=== PATIENT | male | born 1970 | race Caucasian/White ===

== ENCOUNTER 2021-03-13 12:04 | Emergency (ER) | payer OTHER ==
[2021-03-13] MEDS ORDERED: Sodium Chloride 0.9% 10 ML Syringe FLUSH PRN (12:41)
[2021-03-13] MEDS ORDERED: Sodium Chloride 0.9% 2.5 ML Syringe FLUSH PRN (12:41)
[2021-03-13] MEDS ORDERED: cefTRIAXone 1 GM in Premix Bag 1 BAG IV ONE (12:42)
--- NOTE | 2021-03-13 12:52 | EDM.PDOC ---
ED HPI GENERAL MEDICAL PROBLEM - General Chief Complaint: Skin Complaint Stated Complaint: CYST IN GROIN AREA Time Seen by Provider: 03/13/21 12:12 Source of Information: Reports: Patient History Limitations: Reports: No Limitations - History of Present Illness INITIAL COMMENTS - FREE TEXT/NARRATIVE: HISTORY AND PHYSICAL: History of present illness: Patient is a 50-year-old male who presents to the emergency department with concern of an infection noted to his left groin / inner thigh area x 1 week. Patient reports that he noticed a week ago and that he squeezed the abscess which expressed some fluid out of it and thought he had taken care of the infection. He states that it has since, the abscess has returned. Patient reports that he has no testicular pain/scrotal pain with this. Denies any other associated symptoms or concerns. Patient denies fever, chills, chest pain, shortness of breath, or cough. Denies headache, neck stiff ness, change in vision, syncope, or near syncope. Denies nausea, vomiting, abdominal pain, diarrhea, constipation, or dysuria. Has not noted any blood in urine or stool. Patient has been eating and drinking appropriately. Review of systems: As per history of present illness and below otherwise all systems reviewed and negative. Past medical history: As per history of present illness and as reviewed below otherwise noncontrib utory. Surgical history: As per history of present illness and as reviewed below otherwise noncontributory. Social history: See social history for further information Family history: As per history of present illness and as reviewed below otherwise noncontributory. Physical exam: General: Patient is alert, oriented, and in no acute distress. Patient sitting comfortably on exam table. Patient's vitals are stable and reviewed by me. HEENT: Atraumatic, normocephalic, pupils equal and reactive bilaterally, negative for conjunctival pallor or scleral icterus, mucous membranes moist, TMs normal bilaterally, throat clear, neck supple, nontender, trachea midline. No drooling or trismus noted. No meningeal signs. No hot potato voice noted. Lungs: Clear to auscultation, breath sounds equal bilaterally, chest nontender. Heart: S1S2, regular rate and rhythm without overt murmur Abdomen: Soft, nondistended, nontender. Negative for masses or hepatosplenomegaly. Negative for costovertebral tenderness. Pelvis: Stable nontender. Genitourinary: Jewelry Consultant at bedside MARCE Collazo. There is a 2 x 2 cm fluctuant abscess with overlying and surrounding erythema in the left medial / inner thigh just proximal to the scrotum. Tender to palpation over the mass and surrounding tissues. The area of cellulitis does not appear to tract into the scrotum / testicles but is also difficult to fully assess due to location. However, No testicular pain/scrotal tenderness, no penile erythema, drainage, or discomfort. Rectal: Deferred. Skin: Otherwise, intact, warm, dry. Extremities: Atraumatic, negative for cords or calf pain. Neurovascular unremarkable. Neuro: Awake, alert, oriented. Cranial nerves II through XII unremarkable. Cerebellum unremarkable. Motor and sensory unremarkable throughout. Exam nonfocal. Notes: Patient is a 50-year-old male presents emergency department secondary to abscess in his left groin/inner thigh. Upon arrival to the ED, patient is vitally stable but is noted to have an abscess of the left inner thigh with surrounding area of cellulitis. The extension of the cellulitis is difficulty due to the area of location, and is near the scrotum but is unclear if it involves this. Will obtain lab work and abdominal pelvic CT scan to determine the extent of the abscess and cellulitis. Mild derangements of lab work today unremarkable. Noted to have a within normal limits white blood cell count. Abdominal pelvic CT shows a small left inguinal region superficial fluid collection measuring approximately 1.3 cm. Adjacent infiltration of the subcutaneous tissue, likely reflecting cellulitis. Left inguinal region adenopathy may be reactive from adjacent soft tissue infectious process. All incidental findings today of imaging today discussed with patient and importance of follow-up with a primary care provider. Upon reevaluation of patient, he remains vitally stable and comfortable throughout stay in ED. See procedure note below for abscess incision and drainage. Strict return precautions thoroughly discussed with patient and discussed closely monitoring infection for improvement versus worsening symptoms. Signs and symptoms that were prompt return to the ED thoroughly discussed with patient. Discussed importance for follow-up with a primary care provider. Voices understanding and is agreeable to plan of care. Denies any further que stions or concerns at this time. Diagnostics: CBC, CMP, abdominal pelvic CT scan with contrast, wound culture Therapeutics: Rocephin, incision and drainage of abscess, lidocaine Prescription: Bactrim, Keflex Impression: Left inner thigh abscess Cellulitis, left inner thigh Plan: 1. Take medication as prescribed. You can alternate ibuprofen and Tylenol as directed for pain and discomfort. 2. Continue to monitor for signs of improving versus worsening infection as discussed. Follow-up with your primary care provider as discussed. Return to the ED as needed and as discussed. Definitive disposition and diagnosis as appropriate pending reevaluation and review of above. groin Pain Score (Numeric/FACES): 8 - Related Data Allergies Allergy/AdvReac Type Severity Reaction Status Date / Time No Known Allergies Allergy Verified 03/13/21 12:22 Home Meds: Home Meds Cyclobenzaprine [Flexeril] 10 mg PO DAILY 03/13/21 [History] Ibuprofen 800 mg PO ASDIRECTED 03/13/21 [History] Sulfamethoxazole/Trimethoprim [Bactrim Ds Tablet] 1 each PO BID 10 Days #20 tablet 03/13/21 [Rx] cephALEXin [Keflex] 500 mg PO Q8H 10 Days #30 cap 03/13/21 [Rx] Past Medical History - Infectious Disease History Infectious Disease History: Reports: Chicken Pox - Past Surgical History Other Musculoskeletal Surgeries/Procedures:: spinal fusion Social & Family History - Family History Family Medical History: Unobtainable ED ROS GENERAL - Review of Systems Review Of Systems: Comprehensive ROS is negative, except as noted in HPI. ED EXAM, SKIN/RASH Exam: See Below (see dictation) ED SKIN PROCEDURES - I&D Site: left inner medial thigh Skin Prep: Chlorhexidine (Hibiciens), Providone-Iodine (Betadine) Local Anesthesia: Lidocaine: 1% Plain Local Anesthetic Volume: Other (7cc) Area Incised With: 11 Blade Drainage: Purulent, Bloody, Moderate Amount Probed to Break Up Loculations: Yes Packed With: 1/4 in. Iodoform Sterile Dressing: Adhesive Dressing Complications: No Progress/Comments: The procedure, benefits, and risks including bleeding, worsening infection, or injury of surrounding tissues, anesthesia, or allergic reaction and alternatives explained to the patient who voiced understanding of the information. His questions were sought and answered. Patient agreed to procedure with the incision and drainage of abscess of the left inner thigh. Indication, abscess to the left inner thigh. Provider: I&D performed by PA student Smith Keys observed and supervised directly by me. Course - Vital Signs Last Recorded V/S: Last Vital Signs Temp 97.0 F 03/13/21 12:24 Pulse 89 03/13/21 14:40 Resp 16 03/13/21 14:40 BP 155/82 H 03/13/21 12:24 Pulse Ox 96 03/13/21 14:40 - Orders/Labs/Meds Orders: Active Orders 24 hr Category Date Time Status CULTURE WOUND [RM] Stat Lab 03/13/21 15:55 Received Saline Lock Insert [OM.PC] Stat Oth 03/13/21 12:41 Ordered Labs: Laboratory Tests 03/13/21 03/13/21 Range/Units 13:01 13:01 WBC 8.24 (4.0-11.0) K/uL RBC 4.29 L (4.50-5.90) M/uL Hgb 14.7 (13.0-17.0) g/dL Hct 40.8 (38.0-50.0) % MCV 95.1 (80.0-98.0) fL MCH 34.3 H (27.0-32.0) pg MCHC 36.0 (31.0-37.0) g/dL RDW Std Deviation 45.0 (28.0-62.0) fl RDW Coeff of David 13 (11.0-15.0) % Plt Count 151 (150-400) K/uL MPV 10.10 (7.40-12.00) fL Neut % (Auto) 64.0 (48.0-80.0) % Lymph % (Auto) 19.2 (16.0-40.0) % Taney % (Auto) 14.2 (0.0-15.0) % Eos % (Auto) 2.4 (0.0-7.0) % Baso % (Auto) 0.2 (0.0-1.5) % Neut # (Auto) 5.3 (1.4-5.7) K/uL Lymph # (Auto) 1.6 (0.6-2.4) K/uL Taney # (Auto) 1.2 H (0.0-0.8) K/uL Eos # (Auto) 0.2 (0.0-0.7) K/uL Baso # (Auto) 0.0 (0.0-0.1) K/uL Nucleated RBC % 0.0 /100WBC Nucleated RBCs # 0 K/uL Sodium 138 (136-148) mmol/L Potassium 4.6 (3.5-5.1) mmol/L Chloride 102 (98-107) mmol/L Carbon Dioxide 25.6 (21.0-32.0) mmol/L BUN 9 (7.0-18.0) mg/dL Creatinine 0.7 L (0.8-1.3) mg/dL Est Cr Clr Drug Dosing 122.14 mL/min Estimated GFR (MDRD) > 60.0 ml/min Glucose 96 (74-106) mg/dL Calcium 9.0 (8.5-10.1) mg/dL Total Bilirubin 0.4 (0.2-1.0) mg/dL AST 31 (15-37) IU/L ALT 42 (14-63) IU/L Alkaline Phosphatase 78 (46-116) U/L Total Protein 8.0 (6.4-8.2) g/dL Albumin 3.7 (3.4-5.0) g/dL Globulin 4.3 H (2.6-4.0) g/dL Albumin/Globulin Ratio 0.9 (0.9-1.6) Meds: Medications Discontinued Medications Generic Name Dose Route Start Last Admin Trade Name Aracelis PRN Reason Stop Dose Admin Ceftriaxone Sodium/Dextrose 1 50 mls @ 100 mls/hr 03/13/21 12:42 03/13/21 12:59 gm/ Premix IV 03/13/21 13:11 100 mls/hr ONETIME ONE Administration Iopamidol 100 ml 03/13/21 13:56 03/13/21 13:56 Iopamidol 755 Mg/Ml 500 Ml Multipack Bottle IVPUSH 03/13/21 13:57 100 ml ONETIME ONE Administration Lidocaine HCl 10 ml 03/13/21 15:27 03/13/21 15:27 Lidocaine 1% 5 Ml Sdv INJECT 03/13/21 15:28 10 ml ONETIME ONE Administration Lidocaine HCl Confirm 03/13/21 15:25 03/13/21 15:47 Lidocaine 1% 5 Ml Sdv Administered 03/13/21 15:26 Not Given Dose 10 ml .ROUTE .STK-MED ONE Lidocaine/Epinephrine 10 ml 03/13/21 14:39 03/13/21 15:27 Lidocaine 1% With Epinephrine 1:100,000 10 Ml Mdv INJECT 03/13/21 14:40 Not Given ONETIME ONE Sodium Chloride 10 ml 03/13/21 12:41 03/13/21 13:00 Sodium Chloride 0.9% 10 Ml Syringe FLUSH 10 ml ASDIRECTED PRN Administration Keep Vein Open Sodium Chloride 2.5 ml 03/13/21 12:41 03/13/21 13:00 Sodium Chloride 0.9% 2.5 Ml Syringe FLUSH 2.5 ml ASDIRECTED PRN Administration Keep Vein Open Departure - Departure Time of Disposition: 15:56 Disposition: Home, Self-Care 01 Clinical Impression: Cellulitis Qualifiers: Site of cellulitis: extremity Site of cellulitis of extremity: lower extremity Laterality: left Qualified Code(s): L03.116 - Cellulitis of left lower limb Subcutaneous abscess Qualifiers: Site of cutaneous abscess: extremity Site of cutaneous abscess of extremity: lower extremity Laterality: left Qualified Code(s): L02.416 - Cutaneous abscess of left lower limb - Discharge Information Prescriptions: Sulfamethoxazole/Trimethoprim [Bactrim Ds Tablet] 1 each PO BID 10 Days #20 tablet cephALEXin [Keflex] 500 mg PO Q8H 10 Days #30 cap Instructions: Skin Abscess, [id number], Cellulitis, Adult, [id number] Referrals: Olga Massey PA [Primary Care Provider] - Forms: ED Department Discharge Additional Instructions: The following information is given to patients seen in the emergency department who are being discharged to home. This information is to outline your options for follow-up care. We provide all patients seen in our emergency department with a follow-up referral. The need for follow-up, as well as the timing and circumstances, are variable depending upon the specifics of your emergency department visit. If you don't have a primary care physician on staff, we will provide you with a referral. We always advise you to contact your personal physician following an emergency department visit to inform them of the circumstance of the visit and for follow-up with them and/or the need for any referrals to a consulting specialist. The emergency department will also refer you to a specialist when appropriate. This referral assures that you have the opportunity for follow-up care with a specialist. All of these measure are taken in an effort to provide you with optimal care, which includes your follow-up. Under all circumstances we always encourage you to contact your private physician who remains a resource for coordinating your care. When calling for follow-up care, please make the office aware that this follow-up is from your recent emergency room visit. If for any reason you are refused follow-up, please contact the [facility] Emergency Department at and asked to speak to the emergency department charge nurse. [facility] [address] [place] [id number] [facility] [address] [place] [id number] 1. Take medication as prescribed. You can alternate ibuprofen and Tylenol as directed for pain and discomfort. 2. Continue to monitor for signs of improving versus worsening infection as discussed. Follow-up with your primary care provider as discussed. Return to the ED as needed and as discussed. Sepsis Event Note (ED) - Evaluation Sepsis Screening Result: No Definite Risk - Focused Exam Vital Signs: Vital Signs Temp Pulse Resp BP Pulse Ox 03/13/21 14:40 89 16 96 03/13/21 14:00 83 16 97 03/13/21 13:20 87 16 96 03/13/21 12:24 97.0 F 98 18 155/82 H 97 - My Orders Last 24 Hours: My Active Orders 03/13/21 12:41 Saline Lock Insert [OM.PC] Stat 03/13/21 15:55 CULTURE WOUND [RM] Stat - Assessment/Plan Last 24 Hours: My Active Orders 03/13/21 12:41 Saline Lock Insert [OM.PC] Stat 03/13/21 15:55 CULTURE WOUND [RM] Stat
[2021-03-13 13:31] LABS: BLOOD UREA NITROGEN,BUN 9 mg/dL (7.0-18.0); CARBON DIOXIDE,CO2 25.6 mmol/L (21.0-32.0); CHLORIDE,CL 102 mmol/L (98-107); GLUCOSE RANDOM 96 mg/dL (74-106); POTASSIUM,K 4.6 mmol/L (3.5-5.1); SODIUM,NA 138 mmol/L (136-148)
[2021-03-13] MEDS ORDERED: Iopamidol 755 MG/ML 500 ML Multipack Bottle IVPUSH ONE (13:56)
--- NOTE | 2021-03-13 14:34 | CT ---
For Patients: As a result of the Century Cures Act, medical imaging exams and procedure reports are released immediately into your electronic medical record. You may view this report before your referring provider. If you have questions, please contact your health care provider. HISTORY: Left-sided groin abscess. TECHNIQUE: Intravenous contrast enhanced CT of the abdomen and pelvis. 100 mL of Isovue-370 intravenous contrast administered. COMPARISON: No prior. FINDINGS: There is a approximately 1.3 cm small superficial fluid collection within the left inguinal region as seen on image #155. Adjacent infiltration of the subcutaneous tissues likely reflecting cellulitis changes. There is left inguinal adenopathy which may reflect reactive adenopathy from adjacent soft tissue infectious process. There also increased number of prominent right inguinal region lymph nodes. There is no deeper intrapelvic or intra abdominal collection. - No focal liver lesion. No biliary ductal dilatation. Gallbladder does not appear excessively distended. Spleen size within normal limits. Adrenal glands are normal. No focal pancreatic abnormality. Low-density lesion at the inferior pole left kidney is too small to characterize though may represent a cyst. Similar finding present at the superior pole of the right kidney. No hydronephrosis. There is no hydronephrosis. Pelvic calcifications likely represent phleboliths. Urinary bladder does not appear excessively distended. - No small bowel obstruction. No appendicitis. No diverticulitis. - No abdominal aortic aneurysm. - Mild atelectasis within the lung bases. - Changes of prior spinal instrumentation in the setting of a remote fracture of T12. IMPRESSION: 1. Small left inguinal region superficial fluid collection measuring approximately 1.3 cm. 2. Adjacent infiltration of the subcutaneous tissues likely reflecting cellulitis. 3. Left inguinal region adenopathy may be reactive from the adjacent soft tissue infectious process. Please note that all CT scans at this facility use dose modulation, iterative reconstruction, and/or weight-based dosing when appropriate to reduce radiation dose to as low as reasonably achievable. Dictated by Kody Nation MD @ 03/13/2021 2:32:[address] Kody Nation @ Mar 13 2021 2:32PM
[2021-03-13] MEDS ORDERED: Lidocaine 1% with EPINEPHrine 1:100,000 10 ML MDV INJECT ONE (14:39)
== END 2021-03-13 16:13 | disposition home or self-care (01) ==
LOC: MW.ED 12:04
DX: L03.116 Cellulitis of left lower limb (principal); L02.416 Cutaneous abscess of left lower limb
CPT/HCPCS: 10060; 36415; 74177; 80053; 85025; 87070; 96365; 99284; J0696; Q9967; 99283

== ENCOUNTER 2021-06-27 07:18 | Emergency (ER) | payer OTHER ==
--- NOTE | 2021-06-27 07:47 | EDM.PDOC ---
ED HPI GENERAL MEDICAL PROBLEM - General Chief Complaint: Medication Administration Stated Complaint: BACK PAIN Time Seen by Provider: 06/27/21 07:32 Source of Information: Reports: Patient History Limitations: Reports: No Limitations - History of Present Illness INITIAL COMMENTS - FREE TEXT/NARRATIVE: Patient is a 50-year-old male with a history of chronic back pain presents today for medication refill. Patient takes Percocet 10 mg/325mg 1-3 times a day as needed and ran out last week. He tried to contact his PMD however his PMD is out of town and we have confirmed this. Patient states he has no new complaints no fever chills nausea vomiting. - Related Data Allergies Allergy/AdvReac Type Severity Reaction Status Date / Time No Known Allergies Allergy Verified 06/27/21 07:35 Home Meds: Home Meds Cyclobenzaprine [Flexeril] 10 mg PO DAILY 03/13/21 [History] Ibuprofen 800 mg PO ASDIRECTED 03/13/21 [History] Sulfamethoxazole/Trimethoprim [Bactrim Ds Tablet] 1 each PO BID 10 Days #20 tablet 03/13/21 [Rx] cephALEXin [Keflex] 500 mg PO Q8H 10 Days #30 cap 03/13/21 [Rx] Hydrocodone/Acetaminophen [Vicodin Hp 10-300 mg Tablet] 1 tab PO Q8HR PRN 3 Days #9 tablet 06/27/21 [Rx] Past Medical History - Infectious Disease History Infectious Disease History: Reports: Chicken Pox - Past Surgical History Other Musculoskeletal Surgeries/Procedures:: spinal fusion Social & Family History - Family History Family Medical History: Unobtainable ED ROS GENERAL - Review of Systems Review Of Systems: See Below Constitutional: Reports: No Symptoms HEENT: Reports: No Symptoms Respiratory: Reports: No Symptoms Cardiovascular: Reports: No Symptoms Endocrine: Reports: No Symptoms GI/Abdominal: Reports: No Symptoms : Reports: No Symptoms Musculoskeletal: Reports: No Symptoms Skin: Reports: No Symptoms Neurological: Reports: No Symptoms Psychiatric: Reports: No Symptoms Hematologic/Lymphatic: Reports: No Symptoms Immunologic: Reports: No Symptoms ED EXAM, GENERAL - Physical Exam Exam: See Below Exam Limited By: No Limitations General Appearance: Alert, WD/WN, No Apparent Distress Respiratory/Chest: No Respiratory Distress Extremities: Normal Inspection Neurological: Alert, Oriented, Normal Gait Departure - Departure Time of Disposition: 07:42 Disposition: Home, Self-Care 01 Condition: Good Clinical Impression: Medication refill - Discharge Information *PRESCRIPTION DRUG MONITORING PROGRAM REVIEWED*: No *COPY OF PRESCRIPTION DRUG MONITORING REPORT IN PATIENT BARRY: No Referrals: Olga Massey PA [Primary Care Provider] - Additional Instructions: The following information is given to patients seen in the emergency department who are being discharged to home. This information is to outline your options for follow-up care. We provide all patients seen in our emergency department with a follow-up referral. The need for follow-up, as well as the timing and circumstances, are variable depending upon the specifics of your emergency department visit. If you don't have a primary care physician on staff, we will provide you with a referral. We always advise you to contact your personal physician following an emergency department visit to inform them of the circumstance of the visit and for follow-up with them and/or the need for any referrals to a consulting specialist. The emergency department will also refer you to a specialist when appropriate. This referral assures that you have the opportunity for follow-up care with a specialist. All of these measure are taken in an effort to provide you with optimal care, which includes your follow-up. Under all circumstances we always encourage you to contact your private physician who remains a resource for coordinating your care. When calling for follow-up care, please make the office aware that this follow-up is from your recent emergency room visit. If for any reason you are refused follow-up, please contact the [facility] Emergency Department at and asked to speak to the emergency department charge nurse. Please follow up with your primary care physician. If you do not have a primary care physician, see below: [facility] [address] [place] [id number] [facility] [address] [place] [id number] [facility] [address] [place] [id number] You are seen today for medication refill as you take the medication for your back and leg pain. You have no new complaints so we refilled your medication and to you can follow-up with your primary care physician if you have any other concerning signs or symptoms please return to the ED or follow-up with your primary care physician. - Assessment/Plan Plan: Patient is a 50-year-old male with chronic back pain and leg pain presents today for medication refill. Patient has no new complaints. We will give patient a 3- day supply of refills he can follow-up with his primary care physician.
[2021-06-27] MEDS ORDERED: Acetaminophen/oxyCODONE 325-10 MG Tab PO ONE (08:06)
== END 2021-06-27 08:15 | disposition home or self-care (01) ==
LOC: MW.ED 07:18
DX: M54.5 Low back pain (principal); Z76.0 Encounter for issue of repeat prescription
CPT/HCPCS: 99281; A9270

== ENCOUNTER 2025-06-10 07:57 | Day surgery (SDC) | payer OTHER ==
[2025-06-10] MEDS ORDERED: fentaNYL 50 MCG/ML SDV IVPUSH PRN (11:12)
[2025-06-10] MEDS ORDERED: Naloxone 0.4 MG/ML SDV IVPUSH PRN (11:12)
[2025-06-10] MEDS ORDERED: Albuterol 0.083% 2.5 MG/3 ML Neb Soln NEB PRN (11:12)
[2025-06-10] MEDS ORDERED: Ondansetron 4 MG/2 ML SDV IVPUSH PRN (11:12)
[2025-06-10] MEDS: Lactated Ringers 1,000 ML IV SCH (11:15)
[2025-06-10] MEDS ORDERED: Propofol 200 MG/20 ML SDV ONE (11:46)
[2025-06-10] MEDS ORDERED: Dexamethasone 4 MG/ML 5 ML MDV ONE (11:46)
[2025-06-10] MEDS ORDERED: Lidocaine 2% 11 ML Jelly Filled Syringe ONE (11:46)
[2025-06-10] MEDS ORDERED: Ondansetron 4 MG/2 ML SDV ONE (11:46)
[2025-06-10] MEDS ORDERED: fentaNYL 100 MCG/2 ML SDV ONE (11:46)
[2025-06-10] MEDS ORDERED: Ketorolac 30 MG/ML SDV ONE (11:47)
[2025-06-10] MEDS ORDERED: Lactated Ringers 1,000 ML IV SCH (12:45)
== END 2025-06-10 12:57 | disposition home or self-care (01) ==
LOC: MW.ED 07:57 → MW.SDS 10:27
PROVIDERS: ATTEND Surgery
DX: T18.128A Food in esophagus causing other injury, initial encounter (principal); K20.0 Eosinophilic esophagitis; F17.210 Nicotine dependence, cigarettes, uncomplicated; Z79.899 Other long term (current) drug therapy; W44.F3XA Food entering into or through a natural orifice, initial encounter
CPT/HCPCS: 43239; 43247; 96374; 99284; A9270; J1100; J1308; J1610; J1885; J2405; J2704; J3010; J7030; J7120; 00731; 99283; J3490